=== PATIENT | female | born 1965 | race Caucasian/White ===

== ENCOUNTER 2022-05-07 10:23 | Emergency (ER) | payer MEDICAID ==
[~2022-05-07] VITALS: Ht 162.6 cm; Wt 99.8 kg
[2022-05-07 10:41] VITALS: BP_SYST 166
--- NOTE | 2022-05-07 12:20 | NUR ---
PT BIBS FOR C/O BLE LEG PAIN AND RIGHT ARM PAIN. PT HAS BLE WOUNDS AND RIGHT ARM WOUND,MARK. . PT IS AAO4. ON R/A. NORMAL S1S2 NOTED. REGAN N/V/D/C. Addendum: 05/07/22 at 1309 by [email or web address] DISTAL PULSES NORMAL. PT HAS BLE TRACE EDEAM. SIDERAILS UP X2.
--- NOTE | 2022-05-07 12:25 | NUR ---
DR. MUNROE AT BEDSIDE TO ASSESS PT. PT HAS BLE INFECTION, DR. MUNROE STATED HE WILL GIVE PT A PRESCIPTION FOR PAIN MEDICATION AND ABT. PT VERBALIZED UNDERSTANDING.
[2022-05-07] MEDS ORDERED: CEPH-548 PO (13:00)
[2022-05-07] MEDS ORDERED: IBUP-1971 PO (13:00)
--- NOTE | 2022-05-07 13:22 | NUR ---
Patient given written and verbal discharge instructions and verbalizes understanding. ER MD discussed with patient the results and treatment provided. Patient in stable condition. ID arm band removed. Rx of cephalexin/ibuprophen given. Patient educated on pain management and to follow up with PMD. Pain Scale 4/10. Opportunity for questions provided and answered. Medication side effect fact sheet provided.
[2022-05-07 13:26] VITALS: BP_SYST 149
== END 2022-05-07 13:26 | disposition home or self-care (01) ==
LOC: SED 10:23
DX: L03.116 Cellulitis of left lower limb (principal); L03.115 Cellulitis of right lower limb; M79.662 Pain in left lower leg; M79.661 Pain in right lower leg; E11.9 Type 2 diabetes mellitus without complications; I10 Essential (primary) hypertension; Z79.899 Other long term (current) drug therapy
CPT/HCPCS: 99283